=== PATIENT | female | born 1940 | race Caucasian/White ===

== ENCOUNTER 2020-01-11 17:12 | Inpatient (IN) | payer MEDICARE ==
[~2020-01-11] VITALS: Ht 167.6 cm; Wt 58.5 kg
[2020-01-11 20:10] VITALS: BP 138/64
[2020-01-11] MEDS ORDERED: ACETAMINOPHEN 325 MG TABLET PO PRN (20:45)
[2020-01-11] MEDS ORDERED: CALCIUM CARBONATE 500 MG CHEWABLE TABLET CHEW PRN (20:45)
[2020-01-11] MEDS: SENNA 187 MG TABLET PO SCH (22:55)
[2020-01-11] MEDS: METOPROLOL TARTRATE 25 MG TABLET PO SCH (22:55)
[2020-01-11] MEDS: DOCUSATE SODIUM 100 MG CAPSULE PO SCH (22:55)
[2020-01-11] MEDS: ATORVASTATIN CALCIUM 40 MG TABLET PO SCH (22:55)
[2020-01-12 03:29] VITALS: BP 128/74
[2020-01-12] MEDS: ACETAMINOPHEN 325 MG TABLET PO PRN (03:29)
[2020-01-12 06:45] LABS: BASOPHILS % (AUTO) 0.5 % (0.0-2.0); EOSINOPHILS % (AUTO) 1.8 % (1.0-6.0); HEMATOCRIT 40.2 % (36-46); HEMOGLOBIN 13.8 g/dL (12.0-16.0); LYMPHOCYTES # (AUTO) 2.1 K/uL (1.0-4.8); LYMPHOCYTES % (AUTO) 23.9 % (22.0-44.0); MEAN CORPUSCULAR HEMOGLOBIN 29.7 pg (26.0-34.0); MEAN CORPUSCULAR HGB CONC 34.2 G/dL (31.0-37.0); MEAN CORPUSCULAR VOLUME 87 fL (80-100); MONOCYTES # (AUTO) 0.6 K/uL (0.1-1.0); NEUTROPHILS % (AUTO) 66.8 % (40.0-70.0); PLATELET COUNT (AUTO) 213 K/uL (150-450); RED BLOOD CELL COUNT(AUTO) 4.64 MIL/uL (4.00-5.20); RED CELL DISTRIBUTION WIDTH 14.3 % (11.5-14.5)
[2020-01-12 07:22] LABS: ALANINE AMINOTRANSFERASE 36 U/L (12-78); ALBUMIN 3.5 g/dL (3.4-5.0); ALKALINE PHOSPHATASE 53 U/L (46-116); ANION GAP 6 mmol/L (8-16); ASPARTATE AMINOTRANSFERASE 23 U/L (15-37); BILIRUBIN,TOTAL 0.6 mg/dL (0.1-1.0); CARBON DIOXIDE 29 mmol/L (22-29); CHLORIDE 102 mmol/L (98-107); CREATININE 0.71 mg/dL (0.60-1.30); GLUCOSE,RANDOM 107 mg/dL (70-110); POTASSIUM 3.9 mmol/L (3.5-5.1); SODIUM SERUM 137 mmol/L (136-145); TOTAL PROTEIN, SERUM 6.7 g/dL (6.4-8.2); UREA NITROGEN, BLOOD 30 mg/dL (7-18)
[2020-01-12 07:25] LABS: GLOMERULAR FILTR. RATE CALC > 60 mL/min (>60)
[2020-01-12 08:45] VITALS: BP 143/51
[2020-01-12] MEDS: METOPROLOL TARTRATE 25 MG TABLET PO SCH ×2 (08:58→20:59)
[2020-01-12] MEDS: CLOPIDOGREL BISULFATE 75 MG TABLET PO SCH (08:58)
[2020-01-12] MEDS: DOCUSATE SODIUM 100 MG CAPSULE PO SCH ×2 (08:58→20:59)
[2020-01-12] MEDS: ASPIRIN 81 MG CHEWABLE TABLET PO SCH (08:58)
[2020-01-12] MEDS: ENOXAPARIN SODIUM 40 MG/0.4 ML PF SYRINGE SQ SCH (08:59)
[2020-01-12 17:42] VITALS: BP 145/85
[2020-01-12 20:59] VITALS: BP 150/54
[2020-01-12] MEDS: SENNA 187 MG TABLET PO SCH (20:59)
[2020-01-12] MEDS: ATORVASTATIN CALCIUM 40 MG TABLET PO SCH (20:59)
[2020-01-13] VITALS: BP 149/58
[2020-01-13] MEDS: ACETAMINOPHEN 325 MG TABLET PO PRN ×2 (03:20→20:07)
[2020-01-13 07:31] LABS: CHOL/HDL RATIO 3.5 (3.9-5.7); THYROID STIMULATING HORMONE 2.51 uIU/mL (0.36-3.74)
[2020-01-13 07:52] VITALS: BP 130/59
[2020-01-13] MEDS: ASPIRIN 81 MG CHEWABLE TABLET PO SCH (08:39)
[2020-01-13] MEDS: ENOXAPARIN SODIUM 40 MG/0.4 ML PF SYRINGE SQ SCH (08:39)
[2020-01-13] MEDS: CLOPIDOGREL BISULFATE 75 MG TABLET PO SCH (08:39)
[2020-01-13] MEDS: DOCUSATE SODIUM 100 MG CAPSULE PO SCH ×2 (08:39→20:07)
[2020-01-13] MEDS: METOPROLOL TARTRATE 25 MG TABLET PO SCH ×2 (08:39→20:07)
[2020-01-13 18:36] VITALS: BP 133/54
[2020-01-13] MEDS: ATORVASTATIN CALCIUM 40 MG TABLET PO SCH (20:07)
[2020-01-13] MEDS: SENNA 187 MG TABLET PO SCH (20:07)
[2020-01-14 01:00] VITALS: BP 124/61
[2020-01-14] MEDS: ACETAMINOPHEN 325 MG TABLET PO PRN ×2 (01:20→21:34)
[2020-01-14 07:29] VITALS: BP 132/57
[2020-01-14] MEDS: ASPIRIN 81 MG CHEWABLE TABLET PO SCH (08:01)
[2020-01-14] MEDS: METOPROLOL TARTRATE 25 MG TABLET PO SCH ×2 (08:01→21:02)
[2020-01-14] MEDS: CLOPIDOGREL BISULFATE 75 MG TABLET PO SCH (08:01)
[2020-01-14] MEDS: DOCUSATE SODIUM 100 MG CAPSULE PO SCH ×2 (08:01→20:44)
[2020-01-14] MEDS: ENOXAPARIN SODIUM 40 MG/0.4 ML PF SYRINGE SQ SCH (08:02)
[2020-01-14] MEDS: FLUoxetine HCL 10 MG CAPSULE PO SCH (12:16)
[2020-01-14 16:00] VITALS: BP 143/72
[2020-01-14] MEDS: SENNA 187 MG TABLET PO SCH (20:44)
[2020-01-14 20:57] VITALS: BP 136/56
[2020-01-14] MEDS: ATORVASTATIN CALCIUM 40 MG TABLET PO SCH (21:02)
[2020-01-15 01:00] VITALS: BP 136/54
[2020-01-15] MEDS: ACETAMINOPHEN 325 MG TABLET PO PRN (01:39)
[2020-01-15 07:49] VITALS: BP 135/61
[2020-01-15] MEDS: METOPROLOL TARTRATE 25 MG TABLET PO SCH ×2 (08:19→21:24)
[2020-01-15] MEDS: FLUoxetine HCL 10 MG CAPSULE PO SCH (08:19)
[2020-01-15] MEDS: CLOPIDOGREL BISULFATE 75 MG TABLET PO SCH (08:19)
[2020-01-15] MEDS: ASPIRIN 81 MG CHEWABLE TABLET PO SCH (08:20)
[2020-01-15] MEDS: ENOXAPARIN SODIUM 40 MG/0.4 ML PF SYRINGE SQ SCH (08:20)
[2020-01-15] MEDS: DOCUSATE SODIUM 100 MG CAPSULE PO SCH ×2 (08:20→21:21)
[2020-01-15] MEDS: LIDOCAINE 5% TRANSDERMAL PATCH TD SCH (15:42)
[2020-01-15 16:21] VITALS: BP 141/64
[2020-01-15] MEDS: ATORVASTATIN CALCIUM 40 MG TABLET PO SCH (21:21)
[2020-01-15] MEDS: SENNA 187 MG TABLET PO SCH (21:21)
[2020-01-15] MEDS: -LIDODERM PATCH NOTE- MISC SCH (21:30)
[2020-01-15 23:35] VITALS: BP 125/66
[2020-01-16 07:48] VITALS: BP 142/53
[2020-01-16] MEDS: ENOXAPARIN SODIUM 40 MG/0.4 ML PF SYRINGE SQ SCH (08:50)
[2020-01-16] MEDS: FLUoxetine HCL 10 MG CAPSULE PO SCH (08:50)
[2020-01-16] MEDS: CLOPIDOGREL BISULFATE 75 MG TABLET PO SCH (08:51)
[2020-01-16] MEDS: ASPIRIN 81 MG CHEWABLE TABLET PO SCH (08:52)
[2020-01-16] MEDS: DOCUSATE SODIUM 100 MG CAPSULE PO SCH ×2 (08:52→21:16)
[2020-01-16] MEDS: LIDOCAINE 5% TRANSDERMAL PATCH TD SCH (09:00)
[2020-01-16 10:13] VITALS: BP 143/91
[2020-01-16] MEDS: METOPROLOL TARTRATE 25 MG TABLET PO SCH ×2 (10:15→21:16)
[2020-01-16] MEDS: ACETAMINOPHEN 325 MG TABLET PO PRN ×2 (10:15→21:56)
[2020-01-16 15:45] VITALS: BP 141/58
[2020-01-16] MEDS: -LIDODERM PATCH NOTE- MISC SCH (21:06)
[2020-01-16 21:14] VITALS: BP 132/64
[2020-01-16] MEDS: ATORVASTATIN CALCIUM 40 MG TABLET PO SCH (21:15)
[2020-01-16] MEDS: SENNA 187 MG TABLET PO SCH (21:16)
[2020-01-16] MEDS: MELATONIN 5 MG TABLET PO SCH (21:16)
[2020-01-17 00:17] VITALS: BP 109/75
[2020-01-17] MEDS: CLOPIDOGREL BISULFATE 75 MG TABLET PO SCH (08:04)
[2020-01-17] MEDS: FLUoxetine HCL 10 MG CAPSULE PO SCH (08:04)
[2020-01-17] MEDS: DOCUSATE SODIUM 100 MG CAPSULE PO SCH (08:04)
[2020-01-17] MEDS: ASPIRIN 81 MG CHEWABLE TABLET PO SCH (08:04)
[2020-01-17] MEDS: METOPROLOL TARTRATE 25 MG TABLET PO SCH ×2 (08:04→20:27)
[2020-01-17] MEDS: LIDOCAINE 5% TRANSDERMAL PATCH TD SCH (08:05)
[2020-01-17] MEDS: ENOXAPARIN SODIUM 40 MG/0.4 ML PF SYRINGE SQ SCH (08:05)
[2020-01-17 10:29] VITALS: BP 135/105
[2020-01-17 15:20] VITALS: BP 143/60
[2020-01-17] MEDS ORDERED: MAGNESIUM HYDROXIDE SUSPENSION 30 ML UDCUP PO PRN (17:00)
[2020-01-17 20:25] VITALS: BP 129/59
[2020-01-17] MEDS: ATORVASTATIN CALCIUM 40 MG TABLET PO SCH (20:27)
[2020-01-17] MEDS: SENNA 187 MG TABLET PO SCH (20:27)
[2020-01-17] MEDS: DOCUSATE SODIUM 250 MG CAPSULE PO SCH (20:27)
[2020-01-17] MEDS: MELATONIN 5 MG TABLET PO SCH (20:29)
[2020-01-17] MEDS: -LIDODERM PATCH NOTE- MISC SCH (22:08)
[2020-01-17 23:20] VITALS: BP 124/51
[2020-01-18 08:14] VITALS: BP 149/54
[2020-01-18] MEDS: DOCUSATE SODIUM 250 MG CAPSULE PO SCH ×2 (08:19→21:19)
[2020-01-18] MEDS: CLOPIDOGREL BISULFATE 75 MG TABLET PO SCH (08:19)
[2020-01-18] MEDS: METOPROLOL TARTRATE 25 MG TABLET PO SCH ×2 (08:19→20:26)
[2020-01-18] MEDS: FLUoxetine HCL 10 MG CAPSULE PO SCH (08:19)
[2020-01-18] MEDS: ASPIRIN 81 MG CHEWABLE TABLET PO SCH (08:19)
[2020-01-18] MEDS: ENOXAPARIN SODIUM 40 MG/0.4 ML PF SYRINGE SQ SCH (08:19)
[2020-01-18] MEDS: LIDOCAINE 5% TRANSDERMAL PATCH TD SCH (08:20)
[2020-01-18 16:00] VITALS: BP 130/58
[2020-01-18] MEDS: -LIDODERM PATCH NOTE- MISC SCH (20:24)
[2020-01-18] MEDS: SENNA 187 MG TABLET PO SCH (20:25)
[2020-01-18] MEDS: ATORVASTATIN CALCIUM 40 MG TABLET PO SCH (20:25)
[2020-01-18] MEDS: MELATONIN 5 MG TABLET PO SCH (20:26)
[2020-01-18 21:11] VITALS: BP 132/77
[2020-01-19 00:10] VITALS: BP 139/56
[2020-01-19 08:57] VITALS: BP 126/64
[2020-01-19] MEDS: FLUoxetine HCL 10 MG CAPSULE PO SCH (09:12)
[2020-01-19] MEDS: ASPIRIN 81 MG CHEWABLE TABLET PO SCH (09:12)
[2020-01-19] MEDS: METOPROLOL TARTRATE 25 MG TABLET PO SCH ×2 (09:12→20:51)
[2020-01-19] MEDS: DOCUSATE SODIUM 250 MG CAPSULE PO SCH ×2 (09:12→20:51)
[2020-01-19] MEDS: CLOPIDOGREL BISULFATE 75 MG TABLET PO SCH (09:12)
[2020-01-19] MEDS: ENOXAPARIN SODIUM 40 MG/0.4 ML PF SYRINGE SQ SCH (09:12)
[2020-01-19] MEDS: LIDOCAINE 5% TRANSDERMAL PATCH TD SCH (09:12)
[2020-01-19 18:58] VITALS: BP 134/57
[2020-01-19 20:45] VITALS: BP 139/58
[2020-01-19] MEDS: SENNA 187 MG TABLET PO SCH (20:51)
[2020-01-19] MEDS: MELATONIN 5 MG TABLET PO SCH (20:51)
[2020-01-19] MEDS: ATORVASTATIN CALCIUM 40 MG TABLET PO SCH (20:51)
[2020-01-19] MEDS: MAGNESIUM OXIDE 400 MG TABLET PO SCH (20:51)
[2020-01-19] MEDS: -LIDODERM PATCH NOTE- MISC SCH (20:57)
[2020-01-20 01:37] VITALS: BP 125/57
[2020-01-20] MEDS: CLOPIDOGREL BISULFATE 75 MG TABLET PO SCH (08:21)
[2020-01-20] MEDS: MAGNESIUM OXIDE 400 MG TABLET PO SCH ×3 (08:21→20:23)
[2020-01-20] MEDS: FLUoxetine HCL 10 MG CAPSULE PO SCH (08:22)
[2020-01-20] MEDS: ENOXAPARIN SODIUM 40 MG/0.4 ML PF SYRINGE SQ SCH (08:22)
[2020-01-20] MEDS: LIDOCAINE 5% TRANSDERMAL PATCH TD SCH (08:22)
[2020-01-20] MEDS: ASPIRIN 81 MG CHEWABLE TABLET PO SCH (08:22)
[2020-01-20] MEDS: METOPROLOL TARTRATE 25 MG TABLET PO SCH ×2 (08:22→20:24)
[2020-01-20] MEDS: DOCUSATE SODIUM 250 MG CAPSULE PO SCH ×3 (08:22→21:00)
[2020-01-20 09:15] VITALS: BP 115/71
[2020-01-20 16:49] VITALS: BP 133/55
[2020-01-20] MEDS: SENNA 187 MG TABLET PO SCH ×2 (20:23→21:00)
[2020-01-20] MEDS: ATORVASTATIN CALCIUM 40 MG TABLET PO SCH (20:23)
[2020-01-20] MEDS: MELATONIN 5 MG TABLET PO SCH (20:24)
[2020-01-20] MEDS: ACETAMINOPHEN 325 MG TABLET PO PRN (20:43)
[2020-01-20] MEDS: -LIDODERM PATCH NOTE- MISC SCH (20:43)
[2020-01-20 21:00] VITALS: BP 136/66
[2020-01-20 23:51] VITALS: BP 142/72
[2020-01-21 07:17] VITALS: BP 129/58
[2020-01-21] MEDS: FLUoxetine HCL 10 MG CAPSULE PO SCH (07:28)
[2020-01-21] MEDS: METOPROLOL TARTRATE 25 MG TABLET PO SCH ×2 (07:28→20:40)
[2020-01-21] MEDS: CLOPIDOGREL BISULFATE 75 MG TABLET PO SCH (07:28)
[2020-01-21] MEDS: LIDOCAINE 5% TRANSDERMAL PATCH TD SCH ×2 (07:28→18:56)
[2020-01-21] MEDS: ASPIRIN 81 MG CHEWABLE TABLET PO SCH (07:28)
[2020-01-21] MEDS: ENOXAPARIN SODIUM 40 MG/0.4 ML PF SYRINGE SQ SCH (07:29)
[2020-01-21] MEDS: MAGNESIUM OXIDE 400 MG TABLET PO SCH ×3 (07:29→20:39)
[2020-01-21] MEDS ORDERED: METO50 PO (08:48)
[2020-01-21] MEDS ORDERED: *PATIENT'S OWN MED [ENTER DRUG, DOSE, FREQUENCY IN COMMENTS] CLINICAL ONE ×2 (12:00)
[2020-01-21 15:42] VITALS: BP 144/58
[2020-01-21] MEDS: [UNRECOGNIZED DRUG - OTHER] PO SCH ×2 (16:17→20:39)
[2020-01-21] MEDS: [UNRECOGNIZED DRUG - OTHER] PO SCH (16:18)
[2020-01-21] MEDS: ATORVASTATIN CALCIUM 40 MG TABLET PO SCH (20:39)
[2020-01-21] MEDS: MELATONIN 5 MG TABLET PO SCH (20:40)
[2020-01-21] MEDS: ACETAMINOPHEN 325 MG TABLET PO PRN (21:18)
[2020-01-22 00:56] VITALS: BP 138/80
[2020-01-22] MEDS: -LIDODERM PATCH NOTE- MISC SCH (07:00)
[2020-01-22 08:00] VITALS: BP 130/72
[2020-01-22] MEDS: FLUoxetine HCL 10 MG CAPSULE PO SCH (08:30)
[2020-01-22] MEDS: CLOPIDOGREL BISULFATE 75 MG TABLET PO SCH (08:30)
[2020-01-22] MEDS: [UNRECOGNIZED DRUG - OTHER] PO SCH ×2 (08:30→21:20)
[2020-01-22] MEDS: METOPROLOL TARTRATE 25 MG TABLET PO SCH ×2 (08:30→20:14)
[2020-01-22] MEDS: [UNRECOGNIZED DRUG - OTHER] PO SCH (08:30)
[2020-01-22] MEDS: MAGNESIUM OXIDE 400 MG TABLET PO SCH ×3 (08:30→20:13)
[2020-01-22] MEDS: ASPIRIN 81 MG CHEWABLE TABLET PO SCH (08:31)
[2020-01-22] MEDS: ENOXAPARIN SODIUM 40 MG/0.4 ML PF SYRINGE SQ SCH (08:31)
[2020-01-22 15:32] VITALS: BP 120/46
[2020-01-22] MEDS: LIDOCAINE 5% TRANSDERMAL PATCH TD SCH ×2 (17:09→18:21)
[2020-01-22] MEDS: MELATONIN 5 MG TABLET PO SCH (20:13)
[2020-01-22] MEDS: ATORVASTATIN CALCIUM 40 MG TABLET PO SCH (20:14)
[2020-01-23 00:13] VITALS: BP 135/42
[2020-01-23 07:26] VITALS: BP 121/68
[2020-01-23] MEDS: -LIDODERM PATCH NOTE- MISC SCH (07:29)
[2020-01-23] MEDS: [UNRECOGNIZED DRUG - OTHER] PO SCH (08:14)
[2020-01-23] MEDS: [UNRECOGNIZED DRUG - OTHER] PO SCH ×2 (08:14→20:09)
[2020-01-23] MEDS: ENOXAPARIN SODIUM 40 MG/0.4 ML PF SYRINGE SQ SCH (08:15)
[2020-01-23] MEDS: MAGNESIUM OXIDE 400 MG TABLET PO SCH ×3 (08:15→20:09)
[2020-01-23] MEDS: CLOPIDOGREL BISULFATE 75 MG TABLET PO SCH (08:15)
[2020-01-23] MEDS: FLUoxetine HCL 10 MG CAPSULE PO SCH (08:15)
[2020-01-23] MEDS: METOPROLOL TARTRATE 25 MG TABLET PO SCH ×2 (08:15→20:09)
[2020-01-23] MEDS: ASPIRIN 81 MG CHEWABLE TABLET PO SCH (08:21)
[2020-01-23 15:30] VITALS: BP 130/43
[2020-01-23] MEDS ORDERED: CLOP-31 PO (16:21)
[2020-01-23] MEDS ORDERED: PROZ10 PO (16:21)
[2020-01-23] MEDS ORDERED: ASPI-728 PO (16:21)
[2020-01-23] MEDS ORDERED: METO25 PO (16:21)
[2020-01-23] MEDS ORDERED: ATOR40TA28 PO (16:21)
[2020-01-23] MEDS ORDERED: MAGN200T5 PO (16:21)
[2020-01-23] MEDS ORDERED: MELA5TAB3 PO (16:23)
[2020-01-23] MEDS: LIDOCAINE 5% TRANSDERMAL PATCH TD SCH (18:00)
[2020-01-23] MEDS: ATORVASTATIN CALCIUM 40 MG TABLET PO SCH (20:09)
[2020-01-23] MEDS: MELATONIN 5 MG TABLET PO SCH (20:09)
[2020-01-23 20:24] VITALS: BP 114/63
[2020-01-23 23:30] VITALS: BP 128/51
[2020-01-24] MEDS: -LIDODERM PATCH NOTE- MISC SCH (06:00)
[2020-01-24 07:53] VITALS: BP 138/60
[2020-01-24] MEDS: ENOXAPARIN SODIUM 40 MG/0.4 ML PF SYRINGE SQ SCH (08:04)
[2020-01-24] MEDS: MAGNESIUM OXIDE 400 MG TABLET PO SCH ×3 (08:04→20:44)
[2020-01-24] MEDS: ASPIRIN 81 MG CHEWABLE TABLET PO SCH (08:04)
[2020-01-24] MEDS: [UNRECOGNIZED DRUG - OTHER] PO SCH ×2 (08:04→20:44)
[2020-01-24] MEDS: CLOPIDOGREL BISULFATE 75 MG TABLET PO SCH (08:04)
[2020-01-24] MEDS: METOPROLOL TARTRATE 25 MG TABLET PO SCH ×2 (08:04→20:44)
[2020-01-24] MEDS: [UNRECOGNIZED DRUG - OTHER] PO SCH (08:04)
[2020-01-24] MEDS: FLUoxetine HCL 10 MG CAPSULE PO SCH (08:04)
[2020-01-24] MEDS ORDERED: MAGNESIUM HYDROXIDE SUSPENSION 30 ML UDCUP PO PRN (10:00)
[2020-01-24] MEDS ORDERED: DOCUSATE SODIUM 100 MG CAPSULE PO PRN (10:15)
[2020-01-24] MEDS ORDERED: SENNA 187 MG TABLET PO PRN (10:15)
[2020-01-24 16:22] VITALS: BP 139/58
[2020-01-24] MEDS: LIDOCAINE 5% TRANSDERMAL PATCH TD SCH (18:00)
[2020-01-24] MEDS: ATORVASTATIN CALCIUM 40 MG TABLET PO SCH (20:44)
[2020-01-24] MEDS: MELATONIN 5 MG TABLET PO SCH (20:44)
[2020-01-24 23:10] VITALS: BP 119/55
[2020-01-24] MEDS: ACETAMINOPHEN 325 MG TABLET PO PRN (23:11)
[2020-01-25 08:50] VITALS: BP 125/52
[2020-01-25] MEDS: ASPIRIN 81 MG CHEWABLE TABLET PO SCH (08:55)
[2020-01-25] MEDS: [UNRECOGNIZED DRUG - OTHER] PO SCH ×2 (08:55→20:57)
[2020-01-25] MEDS: [UNRECOGNIZED DRUG - OTHER] PO SCH (08:55)
[2020-01-25] MEDS: FLUoxetine HCL 10 MG CAPSULE PO SCH (08:55)
[2020-01-25] MEDS: CLOPIDOGREL BISULFATE 75 MG TABLET PO SCH (08:55)
[2020-01-25] MEDS: METOPROLOL TARTRATE 25 MG TABLET PO SCH ×2 (08:55→20:58)
[2020-01-25] MEDS: MAGNESIUM OXIDE 400 MG TABLET PO SCH ×3 (08:55→20:57)
[2020-01-25] MEDS: ENOXAPARIN SODIUM 40 MG/0.4 ML PF SYRINGE SQ SCH (08:56)
[2020-01-25 16:12] VITALS: BP 127/58
[2020-01-25] MEDS: LIDOCAINE 5% TRANSDERMAL PATCH TD SCH (18:00)
[2020-01-25] MEDS: ATORVASTATIN CALCIUM 40 MG TABLET PO SCH (20:58)
[2020-01-25] MEDS: MELATONIN 5 MG TABLET PO SCH (20:58)
[2020-01-26 00:40] VITALS: BP 133/56
[2020-01-26] MEDS: ACETAMINOPHEN 325 MG TABLET PO PRN (00:40)
[2020-01-26 09:07] VITALS: BP 132/56
[2020-01-26] MEDS: [UNRECOGNIZED DRUG - OTHER] PO SCH (09:22)
[2020-01-26] MEDS: [UNRECOGNIZED DRUG - OTHER] PO SCH ×2 (09:22→21:14)
[2020-01-26] MEDS: ASPIRIN 81 MG CHEWABLE TABLET PO SCH (09:23)
[2020-01-26] MEDS: CLOPIDOGREL BISULFATE 75 MG TABLET PO SCH (09:23)
[2020-01-26] MEDS: MAGNESIUM OXIDE 400 MG TABLET PO SCH ×3 (09:23→21:14)
[2020-01-26] MEDS: FLUoxetine HCL 10 MG CAPSULE PO SCH (09:23)
[2020-01-26] MEDS: ENOXAPARIN SODIUM 40 MG/0.4 ML PF SYRINGE SQ SCH (09:23)
[2020-01-26] MEDS: METOPROLOL TARTRATE 25 MG TABLET PO SCH ×2 (09:23→21:00)
[2020-01-26 15:00] VITALS: BP 143/57
[2020-01-26] MEDS: LIDOCAINE 5% TRANSDERMAL PATCH TD SCH (18:00)
[2020-01-26] MEDS: MELATONIN 5 MG TABLET PO SCH (21:14)
[2020-01-26] MEDS: ATORVASTATIN CALCIUM 40 MG TABLET PO SCH (21:15)
[2020-01-27 00:41] VITALS: BP 144/44
[2020-01-27 07:10] LABS: BASOPHILS % (AUTO) 0.6 % (0.0-2.0); EOSINOPHILS % (AUTO) 2.7 % (1.0-6.0); HEMATOCRIT 37.8 % (36-46); HEMOGLOBIN 12.6 g/dL (12.0-16.0); LYMPHOCYTES # (AUTO) 1.7 K/uL (1.0-4.8); LYMPHOCYTES % (AUTO) 26.7 % (22.0-44.0); MEAN CORPUSCULAR HEMOGLOBIN 29.3 pg (26.0-34.0); MEAN CORPUSCULAR HGB CONC 33.4 G/dL (31.0-37.0); MEAN CORPUSCULAR VOLUME 88 fL (80-100); MONOCYTES # (AUTO) 0.5 K/uL (0.1-1.0); MONOCYTES % (AUTO) 8.1 % (2.0-9.0); NEUTROPHILS % (AUTO) 61.9 % (40.0-70.0); PLATELET COUNT (AUTO) 246 K/uL (150-450); RED BLOOD CELL COUNT(AUTO) 4.31 MIL/uL (4.00-5.20); RED CELL DISTRIBUTION WIDTH 14.2 % (11.5-14.5)
[2020-01-27] MEDS: METOPROLOL TARTRATE 25 MG TABLET PO SCH ×2 (07:35→20:27)
[2020-01-27] MEDS: MAGNESIUM OXIDE 400 MG TABLET PO SCH ×3 (07:35→20:27)
[2020-01-27] MEDS: ASPIRIN 81 MG CHEWABLE TABLET PO SCH (07:35)
[2020-01-27] MEDS: ENOXAPARIN SODIUM 40 MG/0.4 ML PF SYRINGE SQ SCH (07:36)
[2020-01-27] MEDS: CLOPIDOGREL BISULFATE 75 MG TABLET PO SCH (07:36)
[2020-01-27] MEDS: [UNRECOGNIZED DRUG - OTHER] PO SCH (07:36)
[2020-01-27] MEDS: [UNRECOGNIZED DRUG - OTHER] PO SCH ×2 (07:36→20:26)
[2020-01-27 07:55] LABS: ALANINE AMINOTRANSFERASE 34 U/L (12-78); ALBUMIN 3.2 g/dL (3.4-5.0); ALKALINE PHOSPHATASE 52 U/L (46-116); ANION GAP 7 mmol/L (8-16); ASPARTATE AMINOTRANSFERASE 15 U/L (15-37); BILIRUBIN,TOTAL 0.5 mg/dL (0.1-1.0); CALCIUM, TOTAL 8.8 mg/dL (8.8-10.5); CARBON DIOXIDE 29 mmol/L (22-29); CHLORIDE 106 mmol/L (98-107); CREATININE 0.77 mg/dL (0.60-1.30); GLOMERULAR FILTR. RATE CALC > 60 mL/min (>60); GLUCOSE,RANDOM 107 mg/dL (70-110); SODIUM SERUM 142 mmol/L (136-145); TOTAL PROTEIN, SERUM 5.8 g/dL (6.4-8.2); UREA NITROGEN, BLOOD 18 mg/dL (7-18)
[2020-01-27] MEDS ORDERED: LIDOCAINE 5% TRANSDERMAL PATCH TD PRN (08:00)
[2020-01-27 08:13] VITALS: BP 122/46
[2020-01-27] MEDS: FLUoxetine HCL 10 MG CAPSULE PO SCH (10:35)
[2020-01-27 16:38] VITALS: BP 113/45
[2020-01-27] MEDS: ATORVASTATIN CALCIUM 40 MG TABLET PO SCH (20:26)
[2020-01-27] MEDS: MELATONIN 5 MG TABLET PO SCH (20:26)
[2020-01-27 23:25] VITALS: BP 113/64
[2020-01-28 08:53] VITALS: BP 122/56
[2020-01-28] MEDS: METOPROLOL TARTRATE 25 MG TABLET PO SCH ×2 (09:00→20:39)
[2020-01-28] MEDS: FLUoxetine HCL 10 MG CAPSULE PO SCH (09:30)
[2020-01-28] MEDS: [UNRECOGNIZED DRUG - OTHER] PO SCH ×2 (09:30→20:39)
[2020-01-28] MEDS: CLOPIDOGREL BISULFATE 75 MG TABLET PO SCH (09:30)
[2020-01-28] MEDS: ASPIRIN 81 MG CHEWABLE TABLET PO SCH (09:30)
[2020-01-28] MEDS: ENOXAPARIN SODIUM 40 MG/0.4 ML PF SYRINGE SQ SCH (09:30)
[2020-01-28] MEDS: [UNRECOGNIZED DRUG - OTHER] PO SCH (09:30)
[2020-01-28] MEDS: MAGNESIUM OXIDE 400 MG TABLET PO SCH ×3 (09:31→20:39)
[2020-01-28 16:03] VITALS: BP 135/45
[2020-01-28] MEDS: MELATONIN 5 MG TABLET PO SCH (20:39)
[2020-01-28] MEDS: ATORVASTATIN CALCIUM 40 MG TABLET PO SCH (20:39)
[2020-01-29 00:59] VITALS: BP 135/62
[2020-01-29] MEDS: ACETAMINOPHEN 325 MG TABLET PO PRN (00:59)
[2020-01-29 07:41] VITALS: BP 142/53
[2020-01-29] MEDS: [UNRECOGNIZED DRUG - OTHER] PO SCH (10:00)
[2020-01-29] MEDS: CLOPIDOGREL BISULFATE 75 MG TABLET PO SCH (10:00)
[2020-01-29] MEDS: ASPIRIN 81 MG CHEWABLE TABLET PO SCH (10:00)
[2020-01-29] MEDS: FLUoxetine HCL 10 MG CAPSULE PO SCH (10:00)
[2020-01-29] MEDS: [UNRECOGNIZED DRUG - OTHER] PO SCH ×2 (10:00→20:01)
[2020-01-29] MEDS: MAGNESIUM OXIDE 400 MG TABLET PO SCH ×3 (10:00→20:00)
[2020-01-29] MEDS: METOPROLOL TARTRATE 25 MG TABLET PO SCH ×2 (10:00→20:01)
[2020-01-29] MEDS: ENOXAPARIN SODIUM 40 MG/0.4 ML PF SYRINGE SQ SCH (10:01)
[2020-01-29 16:20] VITALS: BP 138/58
[2020-01-29 19:57] VITALS: BP 150/50
[2020-01-29] MEDS: MELATONIN 5 MG TABLET PO SCH (20:01)
[2020-01-29] MEDS: ATORVASTATIN CALCIUM 40 MG TABLET PO SCH (20:01)
[2020-01-30 00:38] VITALS: BP 121/54
[2020-01-30] MEDS: ACETAMINOPHEN 325 MG TABLET PO PRN ×2 (02:37→22:59)
[2020-01-30] MEDS: [UNRECOGNIZED DRUG - OTHER] PO SCH ×2 (08:33→20:28)
[2020-01-30] MEDS: MAGNESIUM OXIDE 400 MG TABLET PO SCH ×3 (08:34→20:28)
[2020-01-30] MEDS: CLOPIDOGREL BISULFATE 75 MG TABLET PO SCH (08:34)
[2020-01-30] MEDS: [UNRECOGNIZED DRUG - OTHER] PO SCH (08:34)
[2020-01-30] MEDS: FLUoxetine HCL 10 MG CAPSULE PO SCH (08:34)
[2020-01-30] MEDS: ENOXAPARIN SODIUM 40 MG/0.4 ML PF SYRINGE SQ SCH (08:34)
[2020-01-30] MEDS: ASPIRIN 81 MG CHEWABLE TABLET PO SCH (08:34)
[2020-01-30] MEDS: METOPROLOL TARTRATE 25 MG TABLET PO SCH ×2 (08:34→20:28)
[2020-01-30 15:14] VITALS: BP 123/54
[2020-01-30 20:21] VITALS: BP 123/58
[2020-01-30] MEDS: ATORVASTATIN CALCIUM 40 MG TABLET PO SCH (20:28)
[2020-01-30] MEDS: MELATONIN 5 MG TABLET PO SCH (20:28)
[2020-01-30 23:59] VITALS: BP 124/52
[2020-01-31] MEDS: METOPROLOL TARTRATE 25 MG TABLET PO SCH ×2 (09:00→21:00)
[2020-01-31 09:52] VITALS: BP 139/56
[2020-01-31] MEDS: [UNRECOGNIZED DRUG - OTHER] PO SCH (09:57)
[2020-01-31] MEDS: FLUoxetine HCL 10 MG CAPSULE PO SCH (09:57)
[2020-01-31] MEDS: ASPIRIN 81 MG CHEWABLE TABLET PO SCH (09:57)
[2020-01-31] MEDS: [UNRECOGNIZED DRUG - OTHER] PO SCH ×2 (09:57→21:35)
[2020-01-31] MEDS: MAGNESIUM OXIDE 400 MG TABLET PO SCH ×3 (09:58→21:34)
[2020-01-31] MEDS: ENOXAPARIN SODIUM 40 MG/0.4 ML PF SYRINGE SQ SCH (09:58)
[2020-01-31] MEDS: CLOPIDOGREL BISULFATE 75 MG TABLET PO SCH (09:58)
[2020-01-31 15:00] VITALS: BP 138/69
[2020-01-31] MEDS: ATORVASTATIN CALCIUM 40 MG TABLET PO SCH (21:35)
[2020-01-31] MEDS: MELATONIN 5 MG TABLET PO SCH (21:35)
[2020-01-31 23:55] VITALS: BP 127/55
[2020-01-31] MEDS: ACETAMINOPHEN 325 MG TABLET PO PRN (23:55)
[2020-02-01 08:20] VITALS: BP 136/64
[2020-02-01] MEDS: [UNRECOGNIZED DRUG - OTHER] PO SCH ×2 (08:20→20:59)
[2020-02-01] MEDS: [UNRECOGNIZED DRUG - OTHER] PO SCH (08:20)
[2020-02-01] MEDS: MAGNESIUM OXIDE 400 MG TABLET PO SCH ×3 (08:20→20:59)
[2020-02-01] MEDS: METOPROLOL TARTRATE 25 MG TABLET PO SCH ×2 (08:21→21:00)
[2020-02-01] MEDS: FLUoxetine HCL 10 MG CAPSULE PO SCH (08:21)
[2020-02-01] MEDS: ASPIRIN 81 MG CHEWABLE TABLET PO SCH (08:21)
[2020-02-01] MEDS: CLOPIDOGREL BISULFATE 75 MG TABLET PO SCH (08:21)
[2020-02-01] MEDS: ENOXAPARIN SODIUM 40 MG/0.4 ML PF SYRINGE SQ SCH (08:21)
[2020-02-01] MEDS: ACETAMINOPHEN 325 MG TABLET PO PRN (14:10)
[2020-02-01 17:08] VITALS: BP 123/57
[2020-02-01] MEDS: MELATONIN 5 MG TABLET PO SCH (20:59)
[2020-02-01] MEDS: ATORVASTATIN CALCIUM 40 MG TABLET PO SCH (20:59)
[2020-02-01 23:00] VITALS: BP 129/48
[2020-02-02 02:00] VITALS: BP 140/59
[2020-02-02 07:26] VITALS: BP 163/73
[2020-02-02 08:30] VITALS: BP 138/55
[2020-02-02] MEDS: ASPIRIN 81 MG CHEWABLE TABLET PO SCH (08:33)
[2020-02-02] MEDS: CLOPIDOGREL BISULFATE 75 MG TABLET PO SCH (08:33)
[2020-02-02] MEDS: [UNRECOGNIZED DRUG - OTHER] PO SCH (08:34)
[2020-02-02] MEDS: [UNRECOGNIZED DRUG - OTHER] PO SCH (08:34)
[2020-02-02] MEDS: FLUoxetine HCL 10 MG CAPSULE PO SCH (08:34)
[2020-02-02] MEDS: MAGNESIUM OXIDE 400 MG TABLET PO SCH (08:34)
[2020-02-02] MEDS: METOPROLOL TARTRATE 25 MG TABLET PO SCH (08:34)
[2020-02-02] MEDS: ENOXAPARIN SODIUM 40 MG/0.4 ML PF SYRINGE SQ SCH (08:35)
== END 2020-02-02 13:40 | disposition home health service (06) | DRG 56 ==
LOC: 2WR 17:45
PROVIDERS: ADMIT Physical Medicine & Rehabilitation; ATTEND Physical Medicine & Rehabilitation
DX: I69.351 Hemiplegia and hemiparesis following cerebral infarction affecting right dominant side (principal); I63.9 Cerebral infarction, unspecified; I10 Essential (primary) hypertension; I73.9 Peripheral vascular disease, unspecified; I25.10 Atherosclerotic heart disease of native coronary artery without angina pectoris; R13.12 Dysphagia, oropharyngeal phase; R47.1 Dysarthria and anarthria; R49.0 Dysphonia; F43.20 Adjustment disorder, unspecified
CPT/HCPCS: 72100; 84443; 87081; 92507; 92523; 92526; 97110; 97112; 97116; 97163; 97166; 97530; 97535; 99366; J1650